=== PATIENT | male | born 1975 | race Caucasian/White ===

== ENCOUNTER → 2020-03-20 | Outpatient (CLI) | payer OTHER ==
--- NOTE | 2020-03-21 20:39 | SLEEPCENT ---
DATE OF PROCEDURE: 03/20/2020 ORDERED BY: CHANTEL Del Cid Nocturnal polysomnography was performed for evaluation of sleep physiology in this patient with a history of excessive somnolence and nonrestorative sleep. 7 hours and 37 minutes of data were reviewed. There were 400.5 minutes of sleep identified. Sleep latency was prolonged at 24 minutes. Rapid eye movement (REM) latency was prolonged at 107 minutes. Sleep architecture was good with three REM cycles. Overall sleep efficiency 88.3%. The patient's electrocardiogram showed a sinus rhythm with an average heart rate of 46 beats per minute. Rate ranged 40-65. EEG showed essentially normal waveforms for awake and sleep. There were no focal events identified. There were only four respiratory events identified of 10 seconds in duration or greater for an apnea-hypopnea index within normal limits at 0.6. Snoring was noted; however, respiratory related arousals occurred only 0.6 times per hour. There was minimal activity in the limb leads and limb movement arousal index was 0.9. IMPRESSION: Normal nocturnal polysomnography with snoring.
== END ==
LOC: M SLEEP 20:00
PROVIDERS: ATTEND Nurse Practitioner Family
DX: R06.83 Snoring (principal)

== ENCOUNTER 2021-11-07 22:49 | Emergency (ER) | payer OTHER ==
[~2021-11-07] VITALS: Ht 180.3 cm; Wt 108.0 kg
[2021-11-07 22:49] VITALS: BP 155/90
[2021-11-07] MEDS ORDERED: LEXA1TAB2 PO (22:56)
[2021-11-07] MEDS ORDERED: BUSP10TA PO (22:56)
== END 2021-11-08 00:16 | disposition left against medical advice (07) ==
LOC: M ED 22:49
DX: Z53.21 Procedure and treatment not carried out due to patient leaving prior to being seen by health care provider (principal)

== ENCOUNTER 2023-02-25 10:08 | Day surgery (SDC) | payer OTHER ==
[~2023-02-25] VITALS: Ht 180.3 cm; Wt 105.6 kg
[~2023-02-25 10:08] MED LIST: ADDE10CA3 PO; BUSP10TA PO; LEXA1TAB2 PO; NS 1,000 ML IV ONE; ZOLO25TA PO
[2023-02-25] MEDS ORDERED: LIDOCAINE 2% 100MG/5ML SDV (FOR ANES.) As Ordered ONE (10:37)
[2023-02-25] MEDS ORDERED: propofoL 200 MG/20 ML VIAL As Ordered ONE (10:37)
[2023-02-25 12:43] VITALS: BP 143/81
== END 2023-02-25 12:45 | disposition home or self-care (01) ==
LOC: M OPP 10:08
PROVIDERS: ATTEND Internal Medicine Gastroenterology
DX: Z12.11 Encounter for screening for malignant neoplasm of colon (principal); K64.0 First degree hemorrhoids; F32.9 Major depressive disorder, single episode, unspecified; F41.9 Anxiety disorder, unspecified; J45.909 Unspecified asthma, uncomplicated; Z79.899 Other long term (current) drug therapy

== ENCOUNTER 2024-02-04 01:00 | Emergency (ER) | payer OTHER ==
[~2024-02-04] VITALS: Ht 180.3 cm; Wt 101.4 kg
[~2024-02-04 01:00] MED LIST changes: -NS 1,000 ML IV ONE
[2024-02-04 01:29] LABS: BASO # 0.1 10^3/uL (0.0-0.2); BASO % 0.7 % (0.0-1.0); EOS # 0.2 10^3/uL (0.0-0.5); EOS % 2.5 % (0.0-3.0); HEMATOCRIT 45.8 % (42.0-52.0); HEMOGLOBIN 16.5 g/dl (13.5-17.5); LYMPH # 2.2 10^3/uL (1.5-5.0); LYMPH % 32.3 % (24.0-44.0); MEAN CORPUSCULAR HEMOGLOBIN 31.3 pg (27.0-33.0); MEAN CORPUSCULAR VOLUME 86.9 fl (80.0-96.0); MONO # 0.7 10^3/uL (0.0-0.8); MONO % 9.7 % (2.0-8.0); NEUTROPHILS # 3.6 10^3/uL (1.5-8.5); NEUTROPHILS % 53.8 % (36.0-66.0); PLATELET COUNT, AUTOMATED 180 10^3/uL (150-450); RED BLOOD COUNT 5.27 10^6/uL (4.30-6.10); WHITE BLOOD COUNT 6.7 10^3/uL (4.0-10.0)
[2024-02-04 01:53] LABS: LIPASE 43 U/L (12-53)
[2024-02-04 01:55] LABS: ALBUMIN 4.1 G/DL (3.2-5.2); ALKALINE PHOSPHATASE 78 U/L (46-116); ALT/SGPT 29 U/L (7.0-40); AST/SGOT 22 U/L (<34); BILIRUBIN,DIRECT 0.1 MG/DL (<0.4); BILIRUBIN,TOTAL 0.7 MG/DL (0.3-1.2); BLOOD UREA NITROGEN 18 MG/DL (9-23); CALCIUM LEVEL 9.1 MG/DL (8.5-10.1); CARBON DIOXIDE LEVEL 29 MMOL/L (20-31); CHLORIDE LEVEL 104 MMOL/L (98-107); CK-MB VALUE MASS < 1.0 NG/ML (<3.6); GLOMERULAR FILTRATION RATE > 60.0 (>60); GLUCOSE, FASTING 92 MG/DL (60-100); POTASSIUM SERUM 3.8 MMOL/L (3.5-5.1); SODIUM LEVEL 139 MMOL/L (136-145); TOTAL PROTEIN 6.9 G/DL (5.7-8.2)
[2024-02-04 01:57] LABS: CPK CREATINE PHOSPHOKINASE 124 U/L (46-171)
[2024-02-04 03:03] VITALS: BP 127/86; TEMP 96.9; O2SAT 96
[2024-02-04 03:03] LABS: CK-MB VALUE MASS < 1.0 NG/ML (<3.6)
[2024-02-04 03:05] LABS: CPK CREATINE PHOSPHOKINASE 109 U/L (46-171); MB/CK RELATIVE INDEX 0.91 (< OR =4)
== END 2024-02-04 04:30 | disposition left against medical advice (07) ==
LOC: M ED 01:00
DX: Z53.21 Procedure and treatment not carried out due to patient leaving prior to being seen by health care provider (principal)

== ENCOUNTER 2024-09-21 20:54 | Inpatient (IN) | payer OTHER ==
[~2024-09-21] VITALS: Ht 180.3 cm; Wt 110.8 kg
[2024-09-21 21:40] LABS: HEMATOCRIT 45.7 % (42.0-52.0); HEMOGLOBIN 16.5 g/dl (13.5-17.5); MEAN CORPUSCULAR HEMOGLOBIN 31.1 pg (27.0-33.0); MEAN CORPUSCULAR HGB CONC 36.1 g/dl (32.0-36.5); MEAN CORPUSCULAR VOLUME 86.2 fl (80.0-96.0); PLATELET COUNT, AUTOMATED 187 10^3/uL (150-450); WHITE BLOOD COUNT 6.9 10^3/uL (4.0-10.0)
[2024-09-21 22:01] LABS: AMPHETAMINES LEVEL URINE NEGATIVE (NEGATIVE); BARBITURATES URINE NEGATIVE (NEGATIVE); BENZODIAZEPINES URINE NEGATIVE (NEGATIVE); CANNABINOIDS URINE NEGATIVE (NEGATIVE); COCAINE METABOLITE URINE NEGATIVE (NEGATIVE); METHADONE URINE NEGATIVE (NEGATIVE); OPIATES URINE NEGATIVE (NEGATIVE); PHENCYCLIDINE URINE NEGATIVE (NEGATIVE)
[2024-09-21 22:03] LABS: ETHYL ALCOHOL (ETHANOL) < 0.003 % (0.000-0.010)
[2024-09-21 22:05] LABS: SALICYLATE LEVEL < 3.0 MG/DL (<30)
[2024-09-21 22:07] LABS: THYROID STIMULATING HORMONE 5.183 uIU/ML (0.55-4.78)
[2024-09-21 22:16] LABS: ALBUMIN 4.1 G/DL (3.2-5.2); ALKALINE PHOSPHATASE 88 U/L (46-116); ALT/SGPT 18 U/L (7.0-40); AST/SGOT 13 U/L (<34); BILIRUBIN,DIRECT 0.1 MG/DL (<0.4); BILIRUBIN,TOTAL 0.6 MG/DL (0.3-1.2); BLOOD UREA NITROGEN 15 MG/DL (9-23); CALCIUM LEVEL 9.8 MG/DL (8.5-10.1); CARBON DIOXIDE LEVEL 30 MMOL/L (20-31); CHLORIDE LEVEL 110 MMOL/L (98-107); CREATININE FOR GFR 0.97 MG/DL (0.70-1.30); GLOMERULAR FILTRATION RATE > 60.0 (>60); GLUCOSE, FASTING 92 MG/DL (60-100); POTASSIUM SERUM 4.4 MMOL/L (3.5-5.1); SODIUM LEVEL 143 MMOL/L (136-145); TOTAL PROTEIN 7.2 G/DL (5.7-8.2)
[2024-09-21] MEDS ORDERED: MAALOX 30 ML SUSP *UDC PO PRN (23:45)
[2024-09-21] MEDS ORDERED: MOM 30ML SUSPENSION UDC PO PRN (23:45)
[2024-09-21] MEDS ORDERED: ACETAMINOPHEN 325 MG TAB PO PRN (23:45)
[2024-09-21] MEDS ORDERED: IBUPROFEN 400MG TAB PO PRN (23:45)
[2024-09-22 02:15] VITALS: BP 133/87; TEMP 96.8; O2SAT 98
[2024-09-22] MEDS ORDERED: ZOLO100T PO (09:28)
[2024-09-22] MEDS ORDERED: CLON-412 PO (09:30)
[2024-09-22] MEDS ORDERED: ATOM25CA2 PO (09:30)
[2024-09-22] MEDS ORDERED: ACET-683 PO (09:32)
[2024-09-22] MEDS ORDERED: SUMA6CAR SC (09:34)
[2024-09-22] MEDS ORDERED: MELA3TAB70 PO (09:36)
[2024-09-22] MEDS ORDERED: GNP250TA9 PO (09:38)
[2024-09-22] MEDS ORDERED: D3 H10002 PO (09:38)
[2024-09-22] MEDS ORDERED: HOME MED LIST COMPLETE! XX SCH (09:40)
[2024-09-22] MEDS: cloNIDine 0.1MG TABLET PO SCH (11:11)
[2024-09-22] MEDS: SERTRALINE 100 MG TAB PO SCH (11:12)
[2024-09-22 13:56] LABS: FREE T4 1.06 NG/DL (0.89-1.76)
[2024-09-22 16:58] VITALS: BP 128/85; TEMP 98.1
[2024-09-22] MEDS: FLUZONE VACCINE TRIVALENT PF(2024-25) 0.5ML SYRINGE IM.IMMUN ONE (17:13)
[2024-09-23 06:17] VITALS: BP 115/65; TEMP 97.5; O2SAT 98
[2024-09-23 08:43] VITALS: BP 128/69
[2024-09-23 15:18] VITALS: BP 135/64; TEMP 98.1; O2SAT 97
[2024-09-23] MEDS: PRAZOSIN 1 MG CAP PO SCH (20:46)
[2024-09-24 06:19] VITALS: BP 130/76; TEMP 97.9; O2SAT 96
[2024-09-24 14:58] VITALS: BP 128/71; TEMP 98.2; O2SAT 98
[2024-09-24] MEDS: ATOMOXETINE 25MG CAPSULE (PATIENT'S OWN MED) PO SCH (15:05)
[2024-09-24] MEDS: traZODone 50 MG TAB PO PRN (20:33)
[2024-09-25 06:10] VITALS: BP 137/85; TEMP 97.9; O2SAT 98
[2024-09-25] MEDS: DIVALPROEX 250MG TAB PO SCH (11:06)
[2024-09-25 16:05] VITALS: BP 119/71; TEMP 98.2; O2SAT 100
[2024-09-26 06:30] VITALS: BP 127/66; TEMP 97; O2SAT 100
[2024-09-26 16:20] VITALS: BP 139/86; TEMP 97.5; O2SAT 98
[2024-09-27 06:45] VITALS: BP 115/61; TEMP 96.8; O2SAT 98
[2024-09-27 15:50] VITALS: BP 116/68; TEMP 97.6; O2SAT 100
[2024-09-27] MEDS: diphenhydrAMINE 25MG CAP PO PRN (20:30)
[2024-09-28 06:16] VITALS: BP 115/69; TEMP 97.4; O2SAT 98
[2024-09-28 08:10] VITALS: BP 129/72
[2024-09-28 16:29] VITALS: BP 141/80; TEMP 97.6
[2024-09-29 06:55] VITALS: BP 120/69; TEMP 98.6; O2SAT 100
[2024-09-29 08:32] VITALS: BP 130/78
[2024-09-29] MEDS: DIVALPROEX 250MG TAB PO ONE (08:50)
[2024-09-29] MEDS ORDERED: ZOLO100T PO (09:24)
[2024-09-29] MEDS ORDERED: TRAZ-252 PO (09:24)
[2024-09-29] MEDS ORDERED: CLON-412 PO (09:24)
[2024-09-29] MEDS ORDERED: DEPA1TAB3 PO (09:24)
[2024-09-29] MEDS ORDERED: PRAZ5CAP PO (09:24)
[2024-09-29] MEDS: DIVALPROEX 500 MG TAB PO SCH (20:22)
[2024-09-29] MEDS: PRAZOSIN 1 MG CAP PO SCH (20:23)
[2024-09-30 06:38] VITALS: BP 106/60; TEMP 97.3; O2SAT 98
[2024-09-30 08:39] VITALS: BP 116/60
== END 2024-09-30 12:57 | disposition home or self-care (01) | DRG 881 ==
LOC: M ED 20:54 → M ED INP 23:44 → M PSY 09-22 01:13
PROVIDERS: ADMIT Psychiatry & Neurology Psychiatry; ATTEND Psychiatry & Neurology Psychiatry
DX: F32.9 Major depressive disorder, single episode, unspecified (principal); R45.851 Suicidal ideations; F43.10 Post-traumatic stress disorder, unspecified; F41.9 Anxiety disorder, unspecified; F60.3 Borderline personality disorder; G47.33 Obstructive sleep apnea (adult) (pediatric); G43.909 Migraine, unspecified, not intractable, without status migrainosus; G47.00 Insomnia, unspecified; E07.9 Disorder of thyroid, unspecified; Z83.3 Family history of diabetes mellitus; Z81.1 Family history of alcohol abuse and dependence; Z79.899 Other long term (current) drug therapy; Z62.810 Personal history of physical and sexual abuse in childhood; Z91.82 Personal history of military deployment